=== PATIENT | female | born 1940 | race Caucasian/White ===

== ENCOUNTER 2018-07-10 11:50 | Emergency (ER) | payer OTHER ==
[2018-07-10 12:02] VITALS: BP 146/79
--- NOTE | 2018-07-10 12:07 | EDPHY ---
H & P Stated Complaint: black tarry stool Time Seen by Provider: 07/10/18 11:59 HPI/ROS: CHIEF COMPLAINT: Diarrhea, dark stool HISTORY OF PRESENT ILLNESS: Patient presents the ED with several days of diarrhea and dark stool. The patient takes a baby abscess or on a daily basis. She has no history of GI bleeding. The patient does have a history of chronic pain secondary to arthritis and degenerative joint disease. The patient does take [place] for this condition chronically. She presents to the ED today complaining of arthritic pain. The patient denies any lightheadedness. She has no complaints of acute abdominal pain. She denies recent antibiotic use. REVIEW OF SYSTEMS: A comprehensive 10 point review of systems is otherwise negative aside from elements mentioned in the history of present illness. Source: Patient, EMS - Personal History Current Tetanus/Diphtheria Vaccine: Yes Current Tetanus Diphtheria and Acellular Pertussis (TDAP): Yes - Medical/Surgical History Hx Chronic Respiratory Disease: Yes Hx Diabetes: Yes Hx Cardiac Disease: Yes Hx Renal Disease: Yes Hx Cirrhosis: No Hx Alcoholism: No Hx HIV/AIDS: No Hx Splenectomy or Spleen Trauma: No Other PMH: CKD stage 3, throidectomy heart disease, depression, hysterectomy - Social History Smoking Status: Former smoker - Physical Exam Exam: General Appearance: Obese female, no acute distress Eyes: Pupils equal and round no pallor or injection ENT, Mouth: Mucous membranes moist Respiratory: There are no retractions, lungs are clear to auscultation Cardiovascular: Regular rate and rhythm Gastrointestinal: Abdomen is soft and nontender, no masses, bowel sounds normal Neurological: 5/5 strength noted all 4 extremities Rectal: Black watery stool noted on exam Skin: Warm and dry, no rashes Musculoskeletal: Neck is supple nontender Extremities: symmetrical, full range of motion Psychiatric: Patient is oriented X 3, there is no agitation Constitutional: Initial Vital Signs Temperature (C) 37 C 07/10/18 11:55 Heart Rate 62 07/10/18 11:55 Respiratory Rate 20 07/10/18 11:55 Blood Pressure 146/79 H 07/10/18 11:55 O2 Sat (%) 85 L 07/10/18 11:55 O2 Delivery Mode Nasal Cannula O2 (L/minute) 2 Allergies/Adverse Reactions: No Known Allergies Allergy (Unverified 07/10/18 12:03) Home Medications: Medication Instructions Recorded ACETAMINOPHEN 07/10/18 Albuterol 5 mg/ml INH 07/10/18 Ascorbic Acid 07/10/18 Duoneb (*) 07/10/18 FLUoxetine 07/10/18 FOLIC ACID 07/10/18 Fluticasone Furoate 07/10/18 Lasix 07/10/18 Lasix 07/10/18 Levothyroxine 07/10/18 Lidocaine 07/10/18 Metoprolol Tartrate 07/10/18 traMADol 07/10/18 Medical Decision Making ED Course/Re-evaluation: The patient presents the ED with diarrhea in the setting of recent laxative use which appears to be black in nature. The patient is not anticoagulated. She denies using Pepto-Bismol. She has no complaints of acute abdominal pain. The patient has no prior history of GI bleeding. The patient is noted to be hemodynamically stable. She has no evidence of a critical anemia. While black watery stool was noted on exam was found to be heme negative. At this point time I do not see an indication for hospitalization. She is likely having a mild reaction to laxative that she used. At this point time I do feel that she can be discharged home. All the department the patient was given IV narcotics for her chronic pain as she typically takes [place]. I re-evaluated the patient at 1:00 p.m. informing her of the workup and plan for discharge. Differential Diagnosis: Differential diagnosis considered includes upper GI bleed, lower GI bleed, medication side effect, gastroenteritis - Data Points Laboratory Results: Laboratory Results 07/10/18 12:24 07/10/18 12:24 07/10/18 07/10/18 07/10/18 12:24 12:24 12:24 WBC RBC Hgb Hct MCV MCH MCHC RDW Plt Count MPV Neut % (Auto) Lymph % (Auto) [place] % (Auto) Eos % (Auto) Baso % (Auto) Nucleat RBC Rel Count Absolute Neuts (auto) Absolute Lymphs (auto) Absolute Monos (auto) Absolute Eos (auto) Absolute Basos (auto) Absolute Nucleated RBC Immature Gran % Immature Gran # PT Pending INR Pending APTT 26.3 SEC SEC (23.0-38.0) Sodium 131 mEq/L L mEq/L (135-145) Potassium 3.9 mEq/L mEq/L (3.5-5.2) Chloride 85 mEq/L L mEq/L (97-110) Carbon Dioxide 34 mEq/l H mEq/l (22-31) Anion Gap 12 mEq/L mEq/L (6-14) BUN 20 mg/dL mg/dL (7-23) Creatinine 1.4 mg/dL H mg/dL (0.6-1.0) Estimated GFR 36 Glucose 134 mg/dL H mg/dL (70-100) Calcium 9.1 mg/dL mg/dL (8.5-10.4) Total Bilirubin 0.8 mg/dL mg/dL (0.1-1.4) Conjugated Bilirubin 0.5 mg/dL mg/dL (0.0-0.5) Unconjugated Bilirubin 0.3 mg/dL mg/dL (0.0-1.1) AST 27 IU/L IU/L (14-46) ALT 35 IU/L IU/L (9-52) Alkaline Phosphatase 90 IU/L IU/L (38-126) Total Protein 6.3 g/dL g/dL (6.3-8.2) Albumin 3.8 g/dL g/dL (3.5-5.0) Stool Occult Bld Scrn NEGATIVE (NEGATIVE) 07/10/18 12:24 WBC 12.19 10^3/uL H 10^3/uL (3.80-9.50) RBC 4.69 10^6/uL 10^6/uL (4.18-5.33) Hgb 13.0 g/dL g/dL (12.6-16.3) Hct 41.5 % % (38.0-47.0) MCV 88.5 fL fL (81.5-99.8) MCH 27.7 pg L pg (27.9-34.1) MCHC 31.3 g/dL L g/dL (32.4-36.7) RDW 15.3 % H % (11.5-15.2) Plt Count 295 10^3/uL 10^3/uL (150-400) MPV 10.1 fL fL (8.7-11.7) Neut % (Auto) 73.9 % % (39.3-74.2) Lymph % (Auto) 14.0 % L % (15.0-45.0) [place] % (Auto) 8.7 % % (4.5-13.0) Eos % (Auto) 1.6 % % (0.6-7.6) Baso % (Auto) 0.7 % % (0.3-1.7) Nucleat RBC Rel Count 0.0 % % (0.0-0.2) Absolute Neuts (auto) 9.00 10^3/uL H 10^3/uL (1.70-6.50) Absolute Lymphs (auto) 1.71 10^3/uL 10^3/uL (1.00-3.00) Absolute Monos (auto) 1.06 10^3/uL H 10^3/uL (0.30-0.80) Absolute Eos (auto) 0.20 10^3/uL 10^3/uL (0.03-0.40) Absolute Basos (auto) 0.08 10^3/uL 10^3/uL (0.02-0.10) Absolute Nucleated RBC 0.00 10^3/uL 10^3/uL (0-0.01) Immature Gran % 1.1 % % (0.0-1.1) Immature Gran # 0.14 10^3/uL H 10^3/uL (0.00-0.10) PT INR APTT Sodium Potassium Chloride Carbon Dioxide Anion Gap BUN Creatinine Estimated GFR Glucose Calcium Total Bilirubin Conjugated Bilirubin Unconjugated Bilirubin AST ALT Alkaline Phosphatase Total Protein Albumin Stool Occult Bld Scrn Medications Given: Discontinued Medications Morphine Sulfate (Morphine) 4 mg IVP EDNOW ONE Stop: 07/10/18 12:09 Last Admin: 07/10/18 12:11 Dose: 4 mg Departure - Departure Disposition: Home, Routine, Self-Care Clinical Impression: Dark stools Condition: Good Instructions: Constipation (ED) Additional Instructions: 1. The black watery stool your having a likely a result of the laxative the ED used. There is no evidence of bleeding in the emergency department. An your stool specifically shows no evidence of blood. 2. I recommend return to the ED immediately for any increasing pain, lightheadedness, obvious bright red blood in your stool or other concerns. Referrals: Juan C Naik MD [Primary Care Provider] - As per Instructions
[2018-07-10 12:28] LABS: PLATELET COUNT 295 10^3/uL (150-400)
[2018-07-10 12:55] LABS: INR 1.1 (0.83-1.16); PROTIME(PATIENT) 13.8 SEC (12.0-15.0)
== END 2018-07-10 13:35 | disposition home or self-care (01) ==
DX: R19.7 Diarrhea, unspecified (principal); N18.3 Chronic kidney disease, stage 3 (moderate)
CPT/HCPCS: 96374; 99284; J2270